=== PATIENT | female | born 1980 | race Caucasian/White ===

== ENCOUNTER 2023-07-06 08:04 | Observation (INO) | payer BC, SELFPAY ==
--- NOTE | ~2023-07-06 | US_ITS ---
EXAMINATION: US right upper quadrant DATE: 07/06/2023 09:24 INDICATION: Cholelithiasis presenting with epigastric pain TECHNIQUE: Multiple grayscale and Doppler ultrasound images of the abdomen were obtained. COMPARISON: None FINDINGS: The pancreatic head and body are normal in appearance. The pancreatic tail is not visualized. The vi sualized proximal to mid inferior vena cava is normal. Liver has normal echogenicity and contour, wit h a smooth surface. No liver lesion identified. No intrahepatic biliary duct dilation suspected. Port al venous flow was seen in the hepatopetal, normal direction and has normal Doppler waveform. There a re multiple echogenic and shadowing gallstones layering in the dependent aspect of the gallbladder wi th some overlying hypoechoic sludge. Mild gallbladder wall thickening but without otis dilation. Son ographic Muir sign was reported as negative by the system manager.Common bile duct measures 3 mm which is normal. IMPRESSION: 1. Cholelithiasis with mild gallbladder wall thickening but without gallbladder dilation or sonograph ic Muir's to more specifically suggest acute cholecystitis. In addition to cholecystitis either acu te or chronic differential for the bladder wall thickening would include liver, heart or renal diseas e or other generalized edema forming states. If there is continued clinical concern for acute cholecy stitis could consider HIDA scan for further evaluation. Reviewed, dictated and finalized at location A. IMPRESSION: 1. Cholelithiasis with mild gallbladder wall thickening but without gallbladder dilation or sonographic Muir's to more specifically suggest acute cholecysti tis. In addition to cholecystitis either acute or chronic differential for the bladder wall thickening would include liver, heart or renal disease or other ge neralized edema forming states. If there is continued clinical concern for acut e cholecystitis could consider HIDA scan for further evaluation.
[2023-07-06 08:14] VITALS: BP 208/101; PULSE 74; RESP 18; TEMP 37.2; O2SAT 98
--- NOTE | 2023-07-06 08:35 | ED.ABDPAIN ---
HPI - Abdominal Pain General Chief Complaint: Abdominal Pain Stated Complaint: ABD pain, vomiting Time Seen by Provider: 07/06/23 08:16 History of Present Illness HPI narrative: Patient states she had some pizza last night, around 7:00 p.m. started having epigastric abdominal pain, nausea vomiting, she has history of gallstones. No obvious fever. But does feel some chills/hot Related Data Allergies Allergy/AdvReac Type Severity Reaction Status Date / Time No Known Allergies Allergy Verified 07/06/23 08:21 Review of Systems Review of Systems: All systems reviewed & are unremarkable except as noted in HPI and below Exam Narrative: EXAMINATION OF ORGAN SYSTEMS/BODY AREAS: Constitutional: Vital signs per nursing GENERAL:[No acute distress, non-toxic appearing.] HEAD: Normal with no signs of head trauma. EYES: EOMI, conjunctiva normal ENT: Hearing grossly intact LUNGS: Nonlabored breathing. HEART: [Regular rate and rhythm] ABD: [Soft], mildly tender to palpation epigastric abdomen EXT: Normal range of motion SKIN: [No rashes or lesions.] NEURO: [Alert and oriented x 3. No gross focal sensory or strength deficits.] PSYCH: Normal affect Course Vital Signs Vital signs: Vital Signs Temperature 99.0 F 07/06/23 08:14 Pulse Rate 74 07/06/23 08:14 Respiratory Rate 18 07/06/23 08:14 Blood Pressure 208/101 H 07/06/23 08:14 Pulse Oximetry 98 07/06/23 08:14 Oxygen Delivery Room Air 07/06/23 08:14 Temperature 99.0 F 07/06/23 08:14 Pulse Rate 77 07/06/23 10:56 Respiratory Rate 18 07/06/23 10:56 Blood Pressure 185/87 H 07/06/23 10:56 Pulse Oximetry 98 07/06/23 10:56 Oxygen Delivery Room Air 07/06/23 08:14 MDM - Abdominal Pain MDM Narrative Medical decision making narrative: Electronic medical record was reviewed. Patient presented to the ED with complaint of [abdominal pain and vomiting]. Vitals notable for hypertension the patient does appear to be in pain I suspect this is why. Physical exam revealed a soft abdomen with some mild tenderness to palpation epigastric abdomen. Based on the patient's history and physical exam, my differential includes but is not limited to [gastritis, gastroenteritis, cholecystitis, pancreatitis]. [IV access was established by nursing staff. Patient was given zofran, morphine]. I will also obtain a right upper quadrant ultrasound to evaluate for possible cholecystitis. CBC, BMP, lipase, LFTs, bilirubin and alk phos were obtained. Labs were pertinent for elevated white count but normal LFTs, bili. Right upper quadrant ultrasound shows cholelithiasis without any obvious signs of cholecystitis. On reevaluation, the patient states that they still feel horrible. Additional round of pain and nausea medicine given. Discussed with General surgery who agrees to consult on the patient and recommend admission to hospitalist for further pain control and possible surgery. Discussed with hospitalist who agrees to admission. Discussed with family and patient who agrees to plan. Lab Data 07/06/23 08:35 07/06/23 08:35 Labs: Lab Results 07/06/23 Range/Units 08:35 WBC 15.4 H (4.5-10.0) K/mm3 RBC 4.69 (4.2-5.4) M/mm3 Hgb 14.0 (12.0-15.0) g/dL Hct 41.3 (37.0-47.0) % MCV 88.1 (80-100) fl MCH 29.9 (26-34) pg MCHC 33.9 (32-36) g/dl RDW 13.1 (11.5-14.5) % Plt Count 254 (150-375) k/mm3 MPV 10.7 H (7.4-10.4) fl Immature Gran % (Auto) 0.4 (0-0.5) % Neut % (Auto) 87.1 H (45.5-73.1) % Lymph % (Auto) 7.6 L (18.3-44.2) % [place] % (Auto) 4.2 (2.6-8.5) % Eos % (Auto) 0.5 (0-4.4) % Baso % (Auto) 0.2 (0.2-1.2) % Lymph # (Auto) 1.17 (0.9-3.2) K/mm3 [place] # (Auto) 0.6 (0.1-0.6) K/mm3 Eos # (Auto) 0.1 (0-0.3) K/mm3 Baso # (Auto) 0.0 (0.0-0.1) K/mm3 Abs Immat Gran (auto) 0.06 H (0.00-0.031) K/mm3 Absolute Neuts (auto) 13.4 H (1.3-6.7) K/mm3 Absolute Nucleated RBC 0.000 (0.0-0.012
[2023-07-06] MEDS: ONDANSETRON INJ 4 MG/2 ML VIAL IV PUSH ×2 (08:38→10:52)
[2023-07-06] MEDS: MORPHINE SULFATE (*CRX) 2 MG/ML INJ IV PUSH ×2 (08:38→14:28)
[2023-07-06 08:51] LABS: Alanine Aminotransferase 16 U/L (6-35); Albumin Level 4.1 g/dL (3.5-5.1); Alkaline Phosphatase 84 U/L (38-126); Anion Gap 8 mmol/L (4-12); Aspartate Amino Transferase 16 U/L (14-36); Basophils Percent Auto 0.2 % (0.2-1.2); Bilirubin,Total 0.6 mg/dL (0.2-1.3); Blood Urea Nitrogen 10 mg/dL (7-17); Calcium 8.5 mg/dL (8.4-10.2); Carbon Dioxide 22 mmol/L (22-30); Chloride 104 mmol/L (98-107); Eosinophils Absolute Auto 0.1 K/mm3 (0-0.3); Eosinophils Percent Auto 0.5 % (0-4.4); Estimated CRCL calculation 208 ml/min; Estimated Glomerular Filt Rate > 60; Glucose 121 mg/dL (65-110); Hematocrit 41.3 % (37.0-47.0); Immature Granulocyte Absolute 0.06 K/mm3 (0.00-0.031); Immature Granulocyte Percent A 0.4 % (0-0.5); Lipase 36 U/L (23-300); Lymphocytes Absolute Auto 1.17 K/mm3 (0.9-3.2); Lymphocytes Percent Auto 7.6 % (18.3-44.2); Mean Corpuscular HGB Conc 33.9 g/dl (32-36); Mean Corpuscular Hemoglobin 29.9 pg (26-34); Mean Corpuscular Volume 88.1 fl (80-100); Mean Platelet Volume 10.7 fl (7.4-10.4); Monocytes Absolute Auto 0.6 K/mm3 (0.1-0.6); Monocytes Percent Auto 4.2 % (2.6-8.5); Neutrophils Absolute Auto 13.4 K/mm3 (1.3-6.7); Neutrophils Percent Auto 87.1 % (45.5-73.1); Platelet Count Result 254 k/mm3 (150-375); Potassium 3.4 mmol/L (3.4-5.0); Red Blood Count 4.69 M/mm3 (4.2-5.4); Red Cell Distribution Width 13.1 % (11.5-14.5); Sodium 134 mmol/L (137-145); White Blood Count 15.4 K/mm3 (4.5-10.0)
[2023-07-06] MEDS: PIPERACILLN/TAZ 3.375GM/NS50ML 3.375 GM/50 ML BAG IVPB ×2 (10:52→23:04)
[2023-07-06] MEDS: MORPHINE SULFATE (*CRX) 4 MG/ML INJ IV PUSH (10:52)
[2023-07-06 10:56] VITALS: BP 185/87; PULSE 77; RESP 18; O2SAT 98
--- NOTE | 2023-07-06 12:24 | ADMGEN ---
This patient, Rosmery Hernandez, was admitted to Medical Room 349-01. Patient/family oriented to hospital policies and general routines including ID bracelet, bed and alarms, visiting hours, pain management, procedures, bathroom and other care routines, personal items, smoking policy, room service/diet, and visiting hours. Information on how to activate the Rapid Response Team has been discussed. Patient/Family are encouraged to report perceived risks to care and to ask questions if they do not understand what they are told or what they should do.
[2023-07-06 12:30] VITALS: BMI 54.3
[2023-07-06 14:00] VITALS: BP 164/73; PULSE 72; RESP 16; TEMP 36.6; O2SAT 94
[2023-07-06] MEDS: HYDROcodone/acetaminophen (*CRX) 5-325 MG TABLET 1 TAB PO (18:52)
--- NOTE | 2023-07-06 20:51 | PM.IMHP ---
H&P: HPI History of Present Illness Date/Time: 07/06/23 22:30 Chief Complaint: Abdominal Pain, Diarrhea Narrative: 42 y/o F presents here with abdominal pain and diarrhea with PMH of hypothyroidism, eczema, and cholelithiasis. Patient presents here from home for further evaluation of abdominal pain and N/V that started last night. Patient had just finished going out to eat for her significant other's birthday and pain started shortly thereafter. Pain that is similar historically would only last for 4-6 hours. However, patient was unable to sleep due to the pain and it did not subside until she was given pain meds in the ED. Patient describes the abdominal pain as intense, sharp, knife-like/twisting, upper abdominal and worse near epigastric region, radiation into her bilateral flanks and between shoulder blades, constant, aggravated by deep inspiration, and alleviated by pain medication. Patient has history of cholelithiasis without cholecystitis, last gallbladder episode in April. Has an episode once every few months for the past 2 years. States the pain today is similar, however intensity much worse today. Initial VS at presentation: 99? F, HR 74, R 18, 208/101, and 98% on RA. ED workup showed: WBC 15.4, no anemia, sodium 134, creatinine 0.4 and GFR >60, total bilirubin/AST/ ALT WNL. US Of the right upper quadrant showed cholelithiasis with mild gallbladder wall thickening, no gallbladder dilation or sonographic Muir sign. Review of Systems Review of Systems: All systems reviewed & are unremarkable except as noted in HPI and below [facility] Past Medical History Medical History (Updated 07/06/23 @ 20:56 by Cher Hayes, MARTHA) Cholelithiasis Eczema Hypothyroidism Social History Social History Smoking status: Never smoker Alcohol intake: never Substance use: never Do You Feel Safe in your Home?: Yes Lack of Transportation: No Lack of Food: Never True Current Housing: I Have Housing Concerned About Future Housing: No Difficulty Paying Gas/Electric Bills: No Difficulty Paying for Meds: No Currently Unemployed: No Education: Master's Degree or Higher Difficulty w/ Childcare or Family Care: No Spiritual care concerns: No Meds Home Medications and Allergies Home Medications Medication Instructions Recorded Confirmed Type albuterol sulfate 90 mcg/actuation 2 puff inhalation Q6-8H PRN 07/06/23 07/06/23 History aerosol inhaler Shortness Of Breath Or Wheezing drospirenone 3 mg-ethinyl 1 tablet PO DAILY 07/06/23 07/06/23 History estradiol 0.03 mg tablet fluoxetine 40 mg capsule 40 mg PO DAILY 07/06/23 07/06/23 History levothyroxine 125 mcg tablet 125 mcg PO DAILY 07/06/23 07/06/23 History pantoprazole 40 mg tablet,delayed 40 mg PO BID 07/06/23 07/06/23 History release Allergies Allergy/AdvReac Type Severity Reaction Status Date / Time No Known Allergies Allergy Verified 07/06/23 08:21 Vital Signs Vital Signs - 24 hr 07/06/23 08:14 07/06/23 10:56 07/06/23 14:00 Temperature 99.0 F 97.9 F Pulse Rate 74 77 72 Respiratory Rate 18 18 16 Blood Pressure 208/101 H 185/87 H 164/73 H Pulse Oximetry 98 98 94 Oxygen Delivery Room Air Exam Const: General: comfortable and no acute distress Other: , female, obese body habitus, nontoxic appearance HENMT: Face/Nose/Sinus: Normal nares present Mouth: Yes moist mucous membranes Eyes: General: appearance normal, both eyes and all related structures Sclera: sclerae normal Pupils: Equal, round and reactive pupils present EOM: EOMs intact bilaterally Resp: Effort & Inspection: normal respiratory effort Auscultation: clear to auscultation bilaterally Cardio: Rate: regular rate Rhythm: regular rhythm Other: S1-S2 present without murmur, rub, ectopy GI: Other: abdomen rounded but soft, nondistended, currently nontender. Normoactive bowel sounds in all quadrants. Skin: Gen
[2023-07-06 21:25] VITALS: BP 175/91; PULSE 72; RESP 18; TEMP 36.6; O2SAT 97
[2023-07-06] MEDS: PANTOPRAZOLE 40 MG TABLET PO (23:04)
[2023-07-07] MEDS: PIPERACILLN/TAZ 3.375GM/NS50ML 3.375 GM/50 ML BAG IVPB ×2 (03:59→09:25)
[2023-07-07 06:00] VITALS: BP 142/89; PULSE 78; RESP 18; TEMP 36.6; O2SAT 96
[2023-07-07 06:29] LABS: Basophils Percent Auto 0.3 % (0.2-1.2); Eosinophils Absolute Auto 0.5 K/mm3 (0-0.3); Eosinophils Percent Auto 4.4 % (0-4.4); Hematocrit 43.1 % (37.0-47.0); Hemoglobin 14.1 g/dL (12.0-15.0); Immature Granulocyte Absolute 0.04 K/mm3 (0.00-0.031); Immature Granulocyte Percent A 0.3 % (0-0.5); Lymphocytes Absolute Auto 1.69 K/mm3 (0.9-3.2); Lymphocytes Percent Auto 14.7 % (18.3-44.2); Mean Corpuscular HGB Conc 32.7 g/dl (32-36); Mean Corpuscular Hemoglobin 29.5 pg (26-34); Mean Corpuscular Volume 90.2 fl (80-100); Mean Platelet Volume 10.6 fl (7.4-10.4); Neutrophils Absolute Auto 8.2 K/mm3 (1.3-6.7); Neutrophils Percent Auto 71.3 % (45.5-73.1); Platelet Count Result 243 k/mm3 (150-375); Red Blood Count 4.78 M/mm3 (4.2-5.4); Red Cell Distribution Width 13.2 % (11.5-14.5); White Blood Count 11.5 K/mm3 (4.5-10.0)
[2023-07-07 06:40] LABS: Alanine Aminotransferase 14 U/L (6-35); Albumin Level 3.8 g/dL (3.5-5.1); Alkaline Phosphatase 76 U/L (38-126); Anion Gap 5 mmol/L (4-12); Aspartate Amino Transferase 14 U/L (14-36); Bilirubin,Total 0.8 mg/dL (0.2-1.3); Blood Urea Nitrogen 6 mg/dL (7-17); Calcium 8.4 mg/dL (8.4-10.2); Carbon Dioxide 26 mmol/L (22-30); Chloride 104 mmol/L (98-107); Estimated CRCL calculation 144 ml/min; Estimated Glomerular Filt Rate > 60; Glucose 107 mg/dL (65-110); Magnesium 1.9 mg/dL (1.6-2.3); Phosphorus 3.6 mg/dL (2.5-4.5); Potassium 3.4 mmol/L (3.4-5.0); Sodium 135 mmol/L (137-145)
--- NOTE | 2023-07-07 12:49 | PM.IMPN ---
Progress Note: A&P Assessment and Plan (1) Cholelithiasis: Code(s): K80.20 - Calculus of gallbladder without cholecystitis without obstruction Status: Acute Assessment and Plan: 07/06/23 - did not meet SIRS criteria - US RUQ: 1. Cholelithiasis with mild gallbladder wall thickening but without gallbladder dilation or sonographic Muir's to more specifically suggest acute cholecystitis. In addition to cholecystitis either acute or chronic differential for the bladder wall thickening would include liver, heart or renal disease or other generalized edema forming states. If there is continued clinical concern for acute cholecystitis could consider HIDA scan for further evaluation. - WBC 15.4 - started on Zosyn on 07/05 - pain control - no procedures/operations planned this evening. will start low fat diet, NPO at midnight. - General Surgery and GI consulted, awaiting recs - trend labs 07/07/23: Zosyn discontinued Continue pain control General surgery and GI consulted (2) Elevated BP without diagnosis of hypertension: Code(s): R03.0 - Elevated blood-pressure reading, without diagnosis of hypertension Status: Acute Assessment and Plan: 07/06/23: - new, currently 164/73. - range since arrival: 164/73 - 208/101 - elevated BP secondary to pain vs new HTN - monitor 07/07/23: Blood pressures remain elevated 142/89 to 185/87 Will start patient on amlodipine 5 mg daily Time Spent With Patient Time with patient: Greater than 35 minutes Subjective Date/time seen: 07/07/23 12:49 Interval history: This is a 42-year-old female presented to the hospital on 07/06/2023 with complaints abdominal pain and diarrhea. Patient has history of cholelithiasis without cholecystitis with a less gallbladder attack in April. Workup in the hospital included an ultrasound of her right upper quadrant which showed cholelithiasis with mild gallbladder wall thickening but without gallbladder dilation, no evidence of acute cholecystitis. Patient was given pain medication, albuterol while in the ED. She was started on Zosyn. GI and General surgery consulted. On examination today. She denies. She endorses. Labs today show WBC count of 11.5, Na+ 135. I will discontinue Zosyn at this time considering she does not have an acute cholecystitis. Review of Systems Review of Systems: All systems reviewed & are unremarkable except as noted in HPI and below Constitutional: Constitutional: Reports as per HPI and Reports no additional constitutional complaints Eyes: Eyes: Reports as per HPI and Reports no additional eye complaints ENT: Reports system reviewed and no additional complaints, except as documented and Reports as per HPI Cardiovascular: Cardiovascular: Reports as per HPI and Reports no additional cardiovascular complaints Respiratory: Respiratory: Reports as per HPI and Reports no additional respiratory complaints Gastrointestinal: Gastrointestinal: Reports as per HPI and Reports no additional gastrointestinal complaints Genitourinary: Genitourinary: Reports no additional female genitourinary complaints and Reports as per HPI Musculoskeletal: Musculoskeletal: Reports no additional musculoskeletal complaints and Reports as per HPI Integumentary/Breasts: Skin/Breast: Reports system reviewed and no additional complaints, except as docu and Reports as per HPI Neurologic: Reports system reviewed and no additional complaints, except as documented and Reports as per HPI Psychiatric: Psychiatric: Reports no additional psychiatric complaints and Reports as per HPI Exam Narrative: General: In no acute distress, well nourished Head: atraumatic, no encephalopathy Eyes: EOMI, PERRLA, sclera clear ENT: moist mucous membranes, nasal passages clear Neck: supple, no JVD, no adenopathy, trachea midline Cardiac: Normal S1 and S2. No murmur, gallops or friction rubs, peripheral pulses intact. Respiratory: Lungs
[2023-07-07] MEDS: FLUoxetine HCL 20 MG CAPSULE 40 MG PO (13:42)
[2023-07-07] MEDS: PANTOPRAZOLE 40 MG TABLET PO (13:42)
[2023-07-07 14:00] VITALS: BP 152/89; PULSE 77; RESP 14; TEMP 35.8; O2SAT 97
--- NOTE | 2023-07-07 14:21 | PM.DS ---
DS: Admitting Diagnosis Discharge Date 07/07/23 Admitting Diagnosis Cholelithiasis Elevated blood pressure without diagnosis of hypertension DS: Summary Hospital Course Reason for hospitalization: Cholelithiasis Elevated blood pressure without diagnosis of hypertension Hospital Course: This is a 42-year-old female presented to the hospital on 07/06/2023 with complaints abdominal pain and diarrhea.? Patient has history of cholelithiasis without cholecystitis with a less gallbladder attack in April.? Workup in the hospital included an ultrasound of her right upper quadrant which showed cholelithiasis with mild gallbladder wall thickening but without gallbladder dilation, no evidence of acute cholecystitis.? Patient was given pain medication, albuterol while in the ED.? She was started on Zosyn. GI and General surgery consulted. On examination today patient is alert and oriented x3, sitting in the chair. Significant other is at the bedside. She denies any fever, chills, nausea, vomiting, diarrhea, abdominal pain, chest pain, shortness a breath. She states she is feeling much better today and would like to be discharged Labs today show WBC count of 11.5, Na+ 135. I will discontinue Zosyn at this time considering she does not have an acute cholecystitis. I also discontinued the General surgery and the GI consult. She will follow-up with her general surgery Dr. in the next 1-2 weeks. She was noted to have hypertension and was started on amlodipine 5 mg daily and she will also follow up with her primary care physician regarding this. She is stable for discharge at this time. Final diagnosis: Cholelithiasis, new onset hypertension Status at Discharge Cognitive/behavioral status at discharge: Alert oriented times x4 Functional status at discharge: independent ambulation Overall status at discharge: patient is progressing back to baseline Time Spent with Patient Time attestation: Total time spent providing and/or coordinating discharge services: Time spent: Greater than 30 minutes Exam Narrative: General: In no acute distress, well nourished Head: atraumatic, no encephalopathy Eyes: EOMI, PERRLA, sclera clear ENT: moist mucous membranes, nasal passages clear Neck: supple, no JVD, no adenopathy, trachea midline Cardiac: Normal S1 and S2. RRR, No murmur, gallops or friction rubs, peripheral pulses intact. Respiratory: Lungs clear to auscultation, no adventitious lung sounds, currently on room air Gastrointestinal: soft, non-distended, non-tender, normoactive bowel sounds. : voiding without difficulty. Extremities: moves all extremities well, no edema, good ROM, strength 5/5 Skin: clean, dry, intact. No wounds or lesions. Neuro: Alert and oriented x4, cranial nerves intact, no neuro deficits. Psych: normal mood, normal affect, interactive DS: Data Data Completed and Pending Completed studies during hospitalization: Ultrasound of upper quadrant Pending studies at discharge: None Labs on day of discharge: Labs from last 24 hours 07/07/23 05:57 WBC 11.5 H RBC 4.78 Hgb 14.1 Hct 43.1 MCV 90.2 MCH 29.5 MCHC 32.7 RDW 13.2 Plt Count 243 MPV 10.6 H Immature Gran % (Auto) 0.3 Neut % (Auto) 71.3 Lymph % (Auto) 14.7 L [place] % (Auto) 9.0 H Eos % (Auto) 4.4 Baso % (Auto) 0.3 Lymph # (Auto) 1.69 [place] # (Auto) 1.0 H Eos # (Auto) 0.5 H Baso # (Auto) 0.0 Abs Immat Gran (auto) 0.04 H Absolute Neuts (auto) 8.2 H Absolute Nucleated RBC 0.000 Nucleated RBC % 0.0 Sodium 135 L Potassium 3.4 Chloride 104 Carbon Dioxide 26 Anion Gap 5 BUN 6 L Creatinine 0.60 L Estim Creat Clear Calc 144 Estimated GFR > 60 Glucose 107 Calcium 8.4 Phosphorus 3.6 Magnesium 1.9 Total Bilirubin 0.8 AST 14 ALT 14 Alkaline Phosphatase 76 Total Protein 7.0 Albumin 3.8 Procedures/Treatments: None Imaging Radiologist's impression: EXAMINATION: US right upper quadrant DATE:? 07/06/2023 09:24
--- NOTE | 2023-07-07 14:28 | WPDGICN ---
Assessment and Plan Assessment and plan (1) Cholelithiasis: Code(s): K80.20 - Calculus of gallbladder without cholecystitis without obstruction Status: Acute Assessment and Plan: here with symptomatic cholelithiasis, managed medically and better now she will need lap rell, timing by surgery liver enzymes normal, no pancreatitis will follow as needed (2) Biliary colic: Code(s): K80.50 - Calculus of bile duct without cholangitis or cholecystitis without obstruction Status: Acute Assessment and Plan: resolved but recurrent surgery to see (3) Upper abdominal pain: Code(s): R10.10 - Upper abdominal pain, unspecified Status: Acute (4) Nausea and vomiting in adult: Code(s): R11.2 - Nausea with vomiting, unspecified Status: Acute Assessment and Plan: resolved (5) Morbid obesity: Code(s): E66.01 - Morbid (severe) obesity due to excess calories Status: Acute (6) Leukocytosis: Code(s): D72.829 - Elevated white blood cell count, unspecified Status: Acute GI Consult Note Consult date/time: 07/07/23 14:28 Reason for consult: abdominal pain, biliary colic HPI: Rosmery Hernandez is a 42 year old female with past medical history of hypothyroidism, morbid obesity. She says that in the past had biliary colic x2 but will go away after few hours (known history of cholelithiasis). with persistent and gradually more severe pain in upper abdomen with nausea and vomiting, never lasted this long and came to ER. Abdominal pain was intense, sharp, at upper abdominal with radiation into her bilateral flanks and between shoulder blades. ED workup WBC 15.4, no anemia, sodium 134, creatinine 0.4 and GFR >60, total bilirubin/AST/ ALT WNL. US? Of the right upper quadrant showed cholelithiasis with mild gallbladder wall thickening. Pain is gone after pain meds and doing great again. Review of Systems Constitutional: Constitutional: Denies chills Eyes: Eyes: Denies blurry vision ENT: Reports Normal hearing present Cardiovascular: Cardiovascular: Denies chest pain Respiratory: Respiratory: Denies cough Gastrointestinal: Gastrointestinal: Reports abdominal pain, Reports nausea and Reports vomiting Genitourinary: Genitourinary: Denies dysuria Musculoskeletal: Musculoskeletal: Denies neck pain Integumentary/Breasts: Skin/Breast: Denies rash Neurologic: Denies Abnormal speech present Psychiatric: Psychiatric: Denies behavioral changes [facility] Past Medical History Medical History (Updated 07/07/23 @ 14:33 by Everton Meyers MD) Biliary colic Cholelithiasis Eczema Hypothyroidism Leukocytosis Morbid obesity Nausea and vomiting in adult Upper abdominal pain Social History Social History Smoking status: Never smoker Alcohol intake: never Substance use: never Do You Feel Safe in your Home?: Yes Lack of Transportation: No Lack of Food: Never True Current Housing: I Have Housing Concerned About Future Housing: No Difficulty Paying Gas/Electric Bills: No Difficulty Paying for Meds: No Currently Unemployed: No Education: Master's Degree or Higher Difficulty w/ Childcare or Family Care: No Spiritual care concerns: No Meds Home Medications and Allergies Home Medications Medication Instructions Recorded Confirmed Type albuterol sulfate 90 mcg/actuation 2 puff inhalation Q6-8H PRN 07/06/23 07/06/23 History aerosol inhaler Shortness Of Breath Or Wheezing drospirenone 3 mg-ethinyl 1 tablet PO DAILY 07/06/23 07/06/23 History estradiol 0.03 mg tablet fluoxetine 40 mg capsule 40 mg PO DAILY 07/06/23 07/06/23 History levothyroxine 125 mcg tablet 125 mcg PO DAILY 07/06/23 07/06/23 History pantoprazole 40 mg tablet,delayed 40 mg PO BID 07/06/23 07/06/23 History release Allergies Allergy/AdvReac Type Severity Reaction Status Date / Time No Known Allergies Allergy Verified 06/19
== END 2023-07-07 14:56 | disposition home or self-care (01) ==
LOC: ANHED 11:34 → ANH3MED 12:34
PROVIDERS: Student in an Organized Health Care Education/Training Program; Admitting Provider Internal Medicine; Emergency Provider Emergency Medicine; Visit Provider Internal Medicine
DX: K80.70 Calculus of gallbladder and bile duct without cholecystitis without obstruction (principal); R03.0 Elevated blood-pressure reading, without diagnosis of hypertension; D72.829 Elevated white blood cell count, unspecified; E03.9 Hypothyroidism, unspecified; Z79.51 Long term (current) use of inhaled steroids; E66.01 Morbid (severe) obesity due to excess calories; Z68.43 Body mass index [BMI] 50.0-59.9, adult
CPT/HCPCS: 36415; 76705; 80053; 83690; 83735; 84100; 85025; 96365; 96375; 96376; 99285; A9270; G0378; J2270; J2405; J2543

== ENCOUNTER 2024-03-11 19:26 | Emergency (ER) | payer BC, SELFPAY ==
--- NOTE | 2024-03-11 19:36 | ED.EXTPRO ---
HPI - Extremity Problem General Chief complaint: Skin/Abscess/Foreign Body Stated complaint: left leg issue Time Seen by Provider: 03/11/24 19:36 Source: patient, RN notes reviewed and old records reviewed Mode of arrival: ambulatory Limitations: no limitations History of Present Illness HPI Narrative: 43-year-old female presents to the [facility] with concerns 2 redness of the left lower leg. Has red spots to the leg that is been there couple weeks. Patient reports over the last day or 2 a scabbed form, increased redness to the anterior left mid lower leg. Tender to palpation. No fluctuance. No increased warmth. No treatment prior to arrival Related Data Home Medications ?Medication ?Instructions ?Recorded ?Confirmed ?Last Taken ?Type fluoxetine 40 mg capsule 40 mg PO DAILY 07/06/23 03/11/24 07/05/23 History levothyroxine 125 mcg tablet 125 mcg PO DAILY 07/06/23 03/11/24 Unknown History albuterol 90 mcg-budesonide 80 2 inh inhalation QID PRN shortness 03/11/24 03/11/24 Unknown History mcg/actuation HFA aerosol inhaler of breath (Airsupra) budesonide-formoterol HFA 160 2 puff inhalation Q12H 03/11/24 03/11/24 Unknown History mcg-4.5 mcg/actuation aerosol inhaler etonogestrel 68 mg subdermal 1 implant subdermal 03/11/24 Unknown History implant (Nexplanon) montelukast 10 mg tablet 10 mg PO QPM 03/11/24 03/11/24 Unknown History Allergies Allergy/AdvReac Type Severity Reaction Status Date / Time No Known Allergies Allergy Verified 03/11/24 19:29 Review of Systems Review of Systems: All systems reviewed & are unremarkable except as noted in HPI and below Constitutional: Constitutional: Reports no additional constitutional complaints ENT: Reports system reviewed and no additional complaints, except as documented Cardiovascular: Cardiovascular: Reports no additional cardiovascular complaints, Denies chest pain and Denies dyspnea Respiratory: Respiratory: Reports no additional respiratory complaints, Denies chest congestion, Denies cough and Denies dyspnea Musculoskeletal: Musculoskeletal: Reports no additional musculoskeletal complaints Integumentary/Breasts: Skin/Breast: Reports as per HPI [facility] Past Medical History Medical History Leukocytosis Morbid obesity Nausea and vomiting in adult Upper abdominal pain Biliary colic Hypothyroidism Eczema Cholelithiasis Social History Social History Smoking status: Never smoker Alcohol intake: never Substance use: never Do You Feel Safe in your Home?: Yes Lack of Transportation: No Lack of Food: Never True Current Housing: I Have Housing Concerned About Future Housing: No Difficulty Paying Gas/Electric Bills: No Difficulty Paying for Meds: No Currently Unemployed: No Education: Master's Degree or Higher Difficulty w/ Childcare or Family Care: No Spiritual care concerns: No Comments At the time of my signature, I reviewed and agree with the nursing past medical, surgical, social, and family history. There is no relevant family history pertinent to the patient complaint. Exam Const: General: cooperative, healthy appearing, comfortable, no acute distress, well developed, alert and well nourished Nutritional Appearance: well nourished Orientation/consciousness: patient oriented x3 Limitations: no limitations HENMT: Head: normal to inspection Eyes: General: appearance normal, both eyes and all related structures Alignment and Position: alignment normal Neck: Neck: normal visual inspection, full ROM, no lymphadenopathy and no meningeal signs Chest: Chest palpation & inspection: normal inspection of the chest Resp: Effort & Inspection: normal respiratory effort and able to speak in complete sentences Cardio: Rate: regular rate Skin: General skin exam: normal color and no rashes or lesions noted Full body images:  1. 3 x 2 cm redness, scabs center. Tenderness with only palpation. No fluctuance. No drainage noted. Denies any injury. Neuro: General: patient oriented x3, gait normal, moves all extremities and no meningeal signs Cognition (Neuro): normal cognition Speech: normal speech Gait exam (Neuro): Normal gait present Extrem: General: normal to inspection, full ROM, capillary refill normal and normal gait Psych: Appearance: grossly normal and well kempt Mental Status: mental status grossly normal Speech and movement: Normal speech and movement present and Clear speech present Affect: normal affect Attitude: cooperative Course Course Level of Care: Express Care Visit Vital Signs Vital signs: Vital Signs Temperature 97.8 F 03/11/24 19:39 Pulse Rate 81 03/11/24 19:39 Respiratory Rate 16 03/11/24 19:39 Blood Pressure 167/101 H 03/11/24 19:39 Pulse Oximetry 100 03/11/24 19:39 Oxygen Delivery Room Air 03/11/24 19:39 Temperature 97.8 F 03/11/24 19:39 Pulse Rate 81 03/11/24 19:39 Respiratory Rate 16 03/11/24 19:39 Blood Pressure 167/101 H 03/11/24 19:39 Pulse Oximetry 100 03/11/24 19:39 Oxygen Delivery Room Air 03/11/24 19:39 Reviewed MDM - Extremity (Nontraumatic) MDM Narrative Medical decision making narrative: Patient sitting comfortably in exam room. Nontoxic, vitals stable except blood pressure is mildly elevated. Patient presents with redness to the left lower leg, concern for possible cellulitis but unlikely. Most likely a contusion or hematoma. Patient appropriate for outpatient treatment with close follow-up Discharge instructions reviewed with patient, as well as provided in writing per nursing staff. The instructions also include specific and strict return/GO TO THE ER as well as f/u information. All questions have been answered, and the patient deny any further questions with discharge and discharge plan. Some parts of this dictation were generated by voice recognition software and may contain typographical and/or grammatical inaccuracies. Differential Diagnosis Differential diagnosis: Likely cellulitis and other (Hematoma, wound, vascular) Critical Care Time Critical Care Time Critical Care Time: No Discharge Plan Discharge Clinical Impression: Leg wound, left Qualifiers: Encounter type: initial encounter Qualified Code(s): S81.802A - Unspecified open wound, left lower leg, initial encounter Patient Disposition: Home, Self-Care Condition: Stable Instructions: Antibiotic Form, Acute Wounds (ED) Additional Instructions: Wash area twice daily with warm soapy water, pat dry. Follow up with primary care provider Today your blood pressure was 167/101. Please follow-up with your primary care provider within the next 2 weeks to have this rechecked. Untreated or undertreated blood pressure can lead to more serious health issues For new or worsening symptoms go directly to the emergency room Patient Language: Swedish Prescriptions: New doxycycline monohydrate 100 mg tablet 100 mg PO BID Qty: 14 0RF No Action montelukast 10 mg tablet 10 mg PO QPM Nexplanon 68 mg implant 1 implant SUBDERMAL budesonide-formoterol 160-4.5 mcg/actuation HFA aerosol inhaler 2 puff INHALATION Q12H Airsupra 90-80 mcg/actuation HFA aerosol inhaler 2 inh INHALATION QID PRN (Reason: shortness of breath) fluoxetine 40 mg capsule 40 mg PO DAILY levothyroxine 125 mcg tablet 125 mcg PO DAILY Follow-up/Referrals: UNKNOWN,DOCTOR [Primary Care Provider] - Time of Disposition: 19:45
[2024-03-11 19:39] VITALS: BP 167/101; PULSE 81; RESP 16; TEMP 36.6; O2SAT 100
== END 2024-03-11 19:50 | disposition home or self-care (01) ==
PROVIDERS: Emergency Provider Nurse Practitioner
DX: S81.802A Unspecified open wound, left lower leg, initial encounter (principal); X58.XXXA Exposure to other specified factors, initial encounter; E03.9 Hypothyroidism, unspecified; E66.01 Morbid (severe) obesity due to excess calories; Z68.43 Body mass index [BMI] 50.0-59.9, adult
CPT/HCPCS: 99213; G0463